=== PATIENT | male | born 1960 | race Caucasian/White ===

== ENCOUNTER → 2016-08-25 | Outpatient (CLI) | payer OTHER, BC ==
[~2016-08-25] MED LIST: ANDROGEL1.25 GM TD; ATENOLOL 100MG100 MG PO; NORCO 5-325 TA1 EACH PO; OXYCONTIN10 M1 PO; OXYCONTIN15 MG PO; OXYCONTIN20 M1 PO; PRINIVIL10 MG PO; RITALIN LA20 MG PO; ROXICODONE30 M1 PO
== END ==
LOC: MRI 09:26
DX: M51.36 Other intervertebral disc degeneration, lumbar region (principal)

== ENCOUNTER → 2017-10-04 | Outpatient (CLI) | payer OTHER, BC | LOC: MRI 14:15 | DX: M25.552 Pain in left hip (principal); K40.90 Unilateral inguinal hernia, without obstruction or gangrene, not specified as recurrent; I10 Essential (primary) hypertension; Z96.642 Presence of left artificial hip joint ==

== ENCOUNTER → 2020-04-15 | Outpatient (CLI) | payer OTHER, BC ==
[~2020-04-15] MED LIST changes: +BUSPIRONE HCL10 MG PO; +FLOMAX0.4 MG PO; +NORCO 7.5-3251 EACH PO; +PROSCAR 5MG TABL5 MG PO; +WELLBUTRIN SR150 MG PO; +ZOFRAN4 MG/5 ML PO
== END ==
LOC: RAD 14:44
PROVIDERS: ATTEND Family Medicine
DX: S43.001A Unspecified subluxation of right shoulder joint, initial encounter (principal); X58.XXXA Exposure to other specified factors, initial encounter; Y93.89 Activity, other specified; Y92.89 Other specified places as the place of occurrence of the external cause; Y99.8 Other external cause status

== ENCOUNTER → 2020-10-26 | Outpatient (CLI) | payer OTHER, BC | LOC: MRI 10:27 | PROVIDERS: ATTEND Orthopaedic Surgery | DX: S46.921A Laceration of unspecified muscle, fascia and tendon at shoulder and upper arm level, right arm, initial encounter (principal); M19.011 Primary osteoarthritis, right shoulder; G89.29 Other chronic pain; M25.511 Pain in right shoulder; X58.XXXA Exposure to other specified factors, initial encounter; Y93.89 Activity, other specified; Y92.89 Other specified places as the place of occurrence of the external cause; Y99.8 Other external cause status ==

== ENCOUNTER 2020-12-04 18:37 | Emergency (ER) | payer OTHER, BC ==
[~2020-12-04] VITALS: Ht 165.1 cm; Wt 68.0 kg
[2020-12-04 20:51] LABS: HEMOGLOBIN 11.6 gm/dL (14.0-18.0); MCH 33.1 pg (26.0-34.0); MCHC 34.2 g/dL (28.0-37.0); MCV 96.8 fL (80.0-100.0); PLATELET COUNT 462 thou/uL (150-400); RBC 3.52 mil/uL (4.50-6.00); RDW 14.5 % (10.5-14.5); WBC 8.6 thou/uL (4.0-11.0)
[2020-12-04 21:17] LABS: CALCIUM 9.1 mg/dL (8.5-10.1); POTASSIUM 4.7 mmol/L (3.5-5.1)
[2020-12-04] MEDS ORDERED: DOXYCYCLINE 10100 MG PO (21:36)
[2020-12-04 21:39] LABS: ABSOLUTE NEUTROPHILS 5.2 thou/uL (1.4-8.2); ATYPICAL LYMPHS 2 %; METAMYELOCYTES 2 %; MYELOCYTES 1 %
[2020-12-04 21:59] VITALS: BP 167/103
[2020-12-05] MEDS ORDERED: DOXYCYCLINE 10100 MG PO (19:00)
[2020-12-06] MEDS ORDERED: DOXYCYCLINE 10100 MG PO (05:45)
== END 2020-12-04 22:00 | disposition home or self-care (01) ==
LOC: ER 18:37
PROVIDERS: Nurse Practitioner
DX: I10 Essential (primary) hypertension (principal)

== ENCOUNTER → 2020-12-05 | Emergency (ER) | payer OTHER, BC ==
[~2020-12-05] MED LIST changes: +DOXYCYCLINE 10100 MG PO
[2020-12-05 18:37] VITALS: BP 166/99
== END ==
LOC: ER 18:27
DX: L02.413 Cutaneous abscess of right upper limb (principal)